=== PATIENT | male | born 1960 | race Caucasian/White ===

== ENCOUNTER 2022-03-11 18:46 | Emergency (ER) | payer OTHER ==
[~2022-03-11] VITALS: Ht 182.9 cm; Wt 102.3 kg
[2022-03-11 19:19] LABS: BASOPHILS % (AUTO) 0.3 % (0-1); EOSINOPHILS # (AUTO) 0.4 X10'3 (0-0.9); EOSINOPHILS % (AUTO) 3.1 % (0-6); HEMATOCRIT 41.1 % (42.0-52.0); HEMOGLOBIN 13.8 g/dl (14.0-17.9); LYMPHOCYTES # (AUTO) 2.1 X10'3 (1.1-4.8); LYMPHOCYTES % (AUTO) 17.2 % (21-51); MEAN CORPUSCULAR HEMOGLOBIN 28.8 PG (27.0-31.0); MEAN CORPUSCULAR HGB CONC 33.5 g/dL (33.0-36.5); MEAN CORPUSCULAR VOLUME 86.1 FL (78-98); MEAN PLATELET VOLUME 8.6 FL (7.4-10.4); MONOCYTES # (AUTO) 2.4 X10'3 (0-0.9); MONOCYTES % (AUTO) 19.8 % (2-12); NEUTROPHILS # (AUTO) 7.1 X10'3 (1.8-7.7); NEUTROPHILS % (AUTO) 59.6 % (42-75); PLATELET COUNT 287 X10'3 (140-440); RED BLOOD COUNT 4.77 X10'6 (4.70-6.10); RED CELL DISTRIBUTION WIDTH 15.7 % (11.5-14.5); WHITE BLOOD COUNT 11.9 X10'3 (4.5-11.0)
[2022-03-11] MEDS ORDERED: aspirin 325mg tablet PO ONE (20:50)
[2022-03-11] MEDS ORDERED: loperamide 2mg capsule PO ONE (20:50)
[2022-03-11] MEDS ORDERED: ondansetron 4mg rapidly disintigrating tab PO ONE (20:50)
[2022-03-11 21:18] LABS: ALANINE AMINOTRANSFERASE 117 U/L (12-78); ALBUMIN 3.8 G/DL (3.4-5.0); ALBUMIN/GLOBULIN RATIO 0.8 (1.1-1.5); ALKALINE PHOSPHATASE 142 IU/L (46-116); ANION GAP 9 (8-16); ASPARTATE AMINO TRANSFERASE 125 U/L (10-37); BILIRUBIN,TOTAL 1.4 MG/DL (0.1-1.0); BLOOD UREA NITROGEN 27 MG/DL (7-18); BUN/CREATININE RATIO 27.8 (5.4-32.0); CALCIUM 9.2 MG/DL (8.5-10.1); CHLORIDE 99 MMOL/L (99-107); CREATININE 0.97 MG/DL (0.60-1.10); GLUCOSE 132 MG/DL (70-104); POTASSIUM 3.6 MMOL/L (3.5-5.1); SODIUM 133 MMOL/L (135-145); TOTAL CARBON DIOXIDE 25.2 MMOL/L (24-32); TOTAL PROTEIN 8.6 G/DL (6.4-8.2); eGFR 78 ML/MIN
[2022-03-11 21:33] LABS: TOTAL CELLS COUNTED 100
[2022-03-11 21:34] LABS: PLATELET ESTIMATE NORMAL
[2022-03-11 22:15] VITALS: BP 165/104
== END 2022-03-11 22:16 | disposition home or self-care (01) ==
LOC: ER 18:46
DX: R07.89 Other chest pain (principal); R42 Dizziness and giddiness; R11.0 Nausea; I10 Essential (primary) hypertension; I25.2 Old myocardial infarction
CPT/HCPCS: 36415; 71045; 80053; 83880; 84484; 85007; 85025; 93005; 99285

== ENCOUNTER 2023-09-10 13:59 | Inpatient (IN) | payer OTHER, MEDICARE ==
[~2023-09-10] VITALS: Ht 188 cm; Wt 114.8 kg
[2023-09-10 15:44] LABS: BASOPHILS # (AUTO) 0.1 X10'3 (0-0.2); BASOPHILS % (AUTO) 0.5 % (0-1); EOSINOPHILS # (AUTO) 0.3 X10'3 (0-0.9); HEMATOCRIT 30.1 % (42.0-52.0); HEMOGLOBIN 9.4 g/dl (14.0-17.9); LYMPHOCYTES # (AUTO) 2.1 X10'3 (1.1-4.8); LYMPHOCYTES % (AUTO) 14.5 % (21-51); MEAN CORPUSCULAR HEMOGLOBIN 25.2 PG (27.0-31.0); MEAN CORPUSCULAR HGB CONC 31.3 g/dL (33.0-36.5); MEAN CORPUSCULAR VOLUME 80.4 FL (78-98); MEAN PLATELET VOLUME 8.6 FL (7.4-10.4); MONOCYTES # (AUTO) 2.1 X10'3 (0-0.9); MONOCYTES % (AUTO) 14.5 % (2-12); NEUTROPHILS # (AUTO) 9.8 X10'3 (1.8-7.7); NEUTROPHILS % (AUTO) 68.5 % (42-75); PLATELET COUNT 264 X10'3 (140-440); RED BLOOD COUNT 3.75 X10'6 (4.70-6.10); RED CELL DISTRIBUTION WIDTH 20.2 % (11.5-14.5); WHITE BLOOD COUNT 14.3 X10'3 (4.5-11.0)
[2023-09-10 15:58] LABS: ALANINE AMINOTRANSFERASE 78 U/L (12-78); ALBUMIN 2.9 G/DL (3.4-5.0); ALBUMIN/GLOBULIN RATIO 0.6 (1.1-1.5); ALKALINE PHOSPHATASE 150 IU/L (46-116); ANION GAP 7 (8-16); ASPARTATE AMINO TRANSFERASE 103 U/L (10-37); BILIRUBIN,TOTAL 0.9 MG/DL (0.1-1.0); BLOOD UREA NITROGEN 14 MG/DL (7-18); BUN/CREATININE RATIO 13.7 (10.0-20.0); CALCIUM 8.7 MG/DL (8.5-10.1); CHLORIDE 96 MMOL/L (99-107); CREATININE 1.02 MG/DL (0.60-1.10); GLUCOSE 120 MG/DL (70-104); SODIUM 133 MMOL/L (135-145); TOTAL CARBON DIOXIDE 29.9 MMOL/L (24-32); eCRCL 84 ML/MIN; eGFR 73 ML/MIN
[2023-09-10 16:02] LABS: ANISOCYTOSIS 3+; MICROCYTOSIS 1+; PLATELET ESTIMATE NORMAL; TOTAL CELLS COUNTED 100
[2023-09-10] MEDS ORDERED: thiamine 100mg tablet PO STA (16:43)
[2023-09-10] MEDS ORDERED: folic acid 1mg tablet PO STA (16:43)
[2023-09-10] MEDS ORDERED: phenobarbital sod 130mg/ml inj. IV ONE (16:45)
[2023-09-10] MEDS ORDERED: dextrose 50%-water 50ml dispensing syringe IV PRN ×2 (16:45→18:25)
[2023-09-10] MEDS ORDERED: magnesium Cl slow-release 64mg tablet PO PRN (17:50)
[2023-09-10] MEDS ORDERED: magnesium 2GM in 50ml NS 50 ML IV PRN (17:50)
[2023-09-10] MEDS ORDERED: magnesium hydroxide 30ml (MOM) UD suspension PO PRN (17:50)
[2023-09-10] MEDS ORDERED: potassium Cl 20 mEq SR tablet PO PRN ×2 (17:50)
[2023-09-10] MEDS ORDERED: magnesium 4gm in 100ml NS 100 ML IV PRN (17:50)
[2023-09-10] MEDS ORDERED: ondansetron/PF 4mg/2ml inj IV PRN (17:50)
[2023-09-10] MEDS: normal saline 1000ml 1,000 ML IV SCH (17:50)
[2023-09-10] MEDS ORDERED: HYDROmorphone inj. 0.5 MG/0.5 ML DISP.SYRIN IV PRN (17:50)
[2023-09-10] MEDS ORDERED: potassium Cl 40MEQ/1/2NS 520ml 520 ML IV PRN (17:50)
[2023-09-10] MEDS ORDERED: acetaminophen 325mg tablet PO PRN (17:50)
[2023-09-10 18:00] LABS: BILIRUBIN,URINE NEGATIVE (Neg); CLARITY,URINE CLEAR (Clear); COLOR,URINE YELLOW (Yellow); GLUCOSE, URINE NEGATIVE (Neg); KETONES,URINE NEGATIVE (Neg); LEUKOCYTE ESTERASE ,URINE NEGATIVE (Neg); NITRITES, URINE NEGATIVE (Neg); OCCULT BLOOD,URINE NEGATIVE (Neg); PH,URINE 6.5 (4.8-8.0); PROTEIN,URINE NEGATIVE (Neg)
[2023-09-10 18:01] LABS: UA COLLECTION TYPE CLN CATCH MIDSTREAM
[2023-09-10] MEDS: folic acid 1mg/0.2ml inj IV SCH (18:25)
[2023-09-10] MEDS ORDERED: haloperidol lactate 5mg/ml inj IM PRN (18:25)
[2023-09-10] MEDS ORDERED: haloperidol 5mg tablet PO PRN (18:25)
[2023-09-10] MEDS ORDERED: tetanus & diphtheria toxoid (Td) vaccine 0.5ml IMVAC ONE (18:30)
[2023-09-10] MEDS ORDERED: TETanus/Pertussis (Acell)/Diphther VAC/PF (Tdap-Adult) 0.5ml syringe IMVAC ONE (18:40)
--- NOTE | 2023-09-10 19:39 | NUR ---
OF PT, LUZ MARIA, OKAY TO UPDATE WITH ANY CHANGES; PH# [phone]
[2023-09-10] MEDS: K and/or MAG REPLACEMENT MC SCH (20:51)
[2023-09-10] MEDS: thiamine 100mg/ml 2ml inj. IV SCH (21:00)
[2023-09-10] MEDS ORDERED: thiamine 100mg/ml 2ml inj. IV SCH (21:00)
[2023-09-10] MEDS: docusate sod 100mg capsule PO SCH (21:12)
[2023-09-10] MEDS: heparin, porcine 5000 units/ml vial SQ SCH (21:13)
[2023-09-10] MEDS: VANCOmycin 1250MG/NS 250ml Bag 250 ML IV SCH (21:14)
[2023-09-10] MEDS: mag hydrox/Alum hydrox/simeth 30ml oral suspension PO PRN (21:14)
[2023-09-10] MEDS: LORazepam 2 mg/ml vial IV PRN (23:17)
[2023-09-10] MEDS: piperacillin/tazo 3.375gm/50ml 50 ML IV SCH (23:22)
[2023-09-11] MEDS: LORazepam 2 mg/ml vial IV PRN ×2 (02:26→08:42)
[2023-09-11 03:33] LABS: BASOPHILS # (AUTO) 0.1 X10'3 (0-0.2); BASOPHILS % (AUTO) 0.9 % (0-1); EOSINOPHILS # (AUTO) 0.3 X10'3 (0-0.9); EOSINOPHILS % (AUTO) 2.6 % (0-6); HEMATOCRIT 29.5 % (42.0-52.0); HEMOGLOBIN 9.2 g/dl (14.0-17.9); LYMPHOCYTES # (AUTO) 1.8 X10'3 (1.1-4.8); LYMPHOCYTES % (AUTO) 15.1 % (21-51); MEAN CORPUSCULAR HGB CONC 31.2 g/dL (33.0-36.5); MEAN PLATELET VOLUME 8.8 FL (7.4-10.4); MONOCYTES # (AUTO) 1.7 X10'3 (0-0.9); MONOCYTES % (AUTO) 14.8 % (2-12); NEUTROPHILS # (AUTO) 7.8 X10'3 (1.8-7.7); NEUTROPHILS % (AUTO) 66.6 % (42-75); PLATELET COUNT 250 X10'3 (140-440); RED BLOOD COUNT 3.69 X10'6 (4.70-6.10); RED CELL DISTRIBUTION WIDTH 19.9 % (11.5-14.5); WHITE BLOOD COUNT 11.7 X10'3 (4.5-11.0)
[2023-09-11 03:35] LABS: ALANINE AMINOTRANSFERASE 72 U/L (12-78); ALBUMIN 2.7 G/DL (3.4-5.0); ALBUMIN/GLOBULIN RATIO 0.6 (1.1-1.5); ALKALINE PHOSPHATASE 168 IU/L (46-116); ANION GAP 8 (8-16); ASPARTATE AMINO TRANSFERASE 86 U/L (10-37); BILIRUBIN,TOTAL 0.9 MG/DL (0.1-1.0); BLOOD UREA NITROGEN 12 MG/DL (7-18); BUN/CREATININE RATIO 14.3 (10.0-20.0); CALCIUM 8.3 MG/DL (8.5-10.1); CHLORIDE 100 MMOL/L (99-107); CREATININE 0.84 MG/DL (0.60-1.10); GLUCOSE 117 MG/DL (70-104); POTASSIUM 3.6 MMOL/L (3.5-5.1); SODIUM 135 MMOL/L (135-145); TOTAL PROTEIN 7.6 G/DL (6.4-8.2); eCRCL 102 ML/MIN; eGFR > 90 ML/MIN
[2023-09-11] MEDS: normal saline 1000ml 1,000 ML IV SCH ×3 (03:50→19:31)
[2023-09-11] MEDS: thiamine 100mg/ml 2ml inj. IV SCH ×3 (06:50→21:54)
[2023-09-11] MEDS: piperacillin/tazo 3.375gm/50ml 50 ML IV SCH (06:52)
[2023-09-11] MEDS: docusate sod 100mg capsule PO SCH ×2 (06:52→19:29)
[2023-09-11] MEDS: K and/or MAG REPLACEMENT MC SCH ×2 (06:53→19:29)
[2023-09-11] MEDS: gabapentin 400mg capsule PO SCH ×2 (07:01)
[2023-09-11] MEDS: heparin, porcine 5000 units/ml vial SQ SCH ×2 (07:03→19:30)
[2023-09-11] MEDS: folic acid 1mg/0.2ml inj IV SCH (07:07)
--- NOTE | 2023-09-11 07:33 | NUR ---
REPORT CALLED UP TO REJI GRIJALVA ON ORTHO. PATIENT TRANSFERRED UPSTAIRS VIA GURNEY.
--- NOTE | 2023-09-11 07:33 | NUR ---
RECEIVED REPORT FROM ED RN
[2023-09-11] MEDS ORDERED: folic acid 1mg/0.2ml inj IV SCH (08:00)
[2023-09-11] MEDS: VANCOmycin 1250MG/NS 250ml Bag 250 ML IV SCH ×2 (08:04→19:28)
[2023-09-11 08:09] VITALS: BP 167/80; PULSE 99; RESP 14; TEMP 98.6; O2SAT 94
[2023-09-11] MEDS: HYDROcodone/acetaminophen 5mg/325mg tablet PO PRN ×2 (08:42→14:14)
[2023-09-11 10:00] VITALS: BP 153/88; PULSE 93; RESP 18; TEMP 99.1; O2SAT 92
[2023-09-11] MEDS ORDERED: AMLO-140 PO (13:15)
[2023-09-11] MEDS ORDERED: DICL100G59 TOP (13:15)
[2023-09-11] MEDS ORDERED: CAPS60CR6 TOP (13:15)
[2023-09-11] MEDS ORDERED: LIDO5CRE18 TOP (13:15)
[2023-09-11] MEDS ORDERED: THI100I (13:15)
[2023-09-11] MEDS ORDERED: GABA600T13 PO (13:15)
[2023-09-11] MEDS ORDERED: TIZA4CAP PO (13:15)
[2023-09-11] MEDS ORDERED: CYAN500T71 PO (13:15)
[2023-09-11] MEDS ORDERED: TRAM50TA2 PO (13:15)
[2023-09-11] MEDS ORDERED: FURO-150 PO (13:15)
[2023-09-11] MEDS ORDERED: MULT-1085 PO (13:15)
[2023-09-11] MEDS ORDERED: FOLI0.4T6 PO (13:15)
[2023-09-11] MEDS ORDERED: HYDR-3927 PO (13:15)
[2023-09-11] MEDS ORDERED: MECL-231 PO (13:15)
[2023-09-11] MEDS ORDERED: SPIR25TA5 PO (13:15)
[2023-09-11] MEDS ORDERED: spironolactone 25 MG tablet PO PRN (14:35)
[2023-09-11] MEDS ORDERED: non-formulary drug (Amlodipine Besylate/Benazepril 5/40 MG* (Amlodipine-Benazepril 5/40 MG PO PRN (14:35)
[2023-09-11] MEDS ORDERED: meclizine 12.5mg tablet PO PRN (16:00)
[2023-09-11] MEDS: tizanidine 4mg tablet PO SCH (16:18)
[2023-09-11] MEDS: gabapentin 300mg capsule PO SCH (16:18)
[2023-09-11 18:00] VITALS: BP 132/74; PULSE 87; RESP 18; TEMP 98; O2SAT 95
--- NOTE | 2023-09-11 18:28 | NUR ---
gave report raffaele hutchins
[2023-09-11] MEDS: DICLOFENAC SODIUM 1% gel 1 APPLIC APPLIC TP SCH (19:28)
[2023-09-11] MEDS: LIDOCAINE 5% OINTMENT 35GM TP SCH (19:30)
[2023-09-11] MEDS: capsaicin 0.025% 60gm cream TP SCH (19:30)
[2023-09-11] MEDS: hydrOXYzine 25 MG tablet PO SCH (21:55)
[2023-09-11 22:00] VITALS: BP 144/88; PULSE 82; RESP 20; TEMP 98.8; O2SAT 97
[2023-09-12] MEDS: gabapentin 300mg capsule PO SCH ×3 (00:20→15:37)
[2023-09-12] MEDS: tizanidine 4mg tablet PO SCH ×3 (00:20→15:37)
[2023-09-12] MEDS: DICLOFENAC SODIUM 1% gel 1 APPLIC APPLIC TP SCH ×4 (00:21→20:00)
[2023-09-12 06:00] VITALS: BP 153/88; PULSE 74; RESP 19; TEMP 98.8; O2SAT 96
[2023-09-12] MEDS ORDERED: VANCOMYCIN LEVEL IV ONE (06:30)
--- NOTE | 2023-09-12 06:42 | NUR ---
Problems reprioritized. Patient report given, questions answered & plan of care reviewed with REJI SILVA.
[2023-09-12 07:11] LABS: ALANINE AMINOTRANSFERASE 48 U/L (12-78); ALBUMIN 2.2 G/DL (3.4-5.0); ALBUMIN/GLOBULIN RATIO 0.5 (1.1-1.5); ALKALINE PHOSPHATASE 114 IU/L (46-116); ANION GAP 5 (8-16); ASPARTATE AMINO TRANSFERASE 56 U/L (10-37); BILIRUBIN,TOTAL 0.7 MG/DL (0.1-1.0); BLOOD UREA NITROGEN 14 MG/DL (7-18); BUN/CREATININE RATIO 17.1 (10.0-20.0); CALCIUM 7.9 MG/DL (8.5-10.1); CHLORIDE 104 MMOL/L (99-107); CREATININE 0.82 MG/DL (0.60-1.10); GLUCOSE 114 MG/DL (70-104); POTASSIUM 4.1 MMOL/L (3.5-5.1); SODIUM 135 MMOL/L (135-145); TOTAL PROTEIN 6.6 G/DL (6.4-8.2); VANCOMYCIN,TROUGH 11.9 ug/mL (10.0-20.0); eCRCL 104 ML/MIN; eGFR > 90 ML/MIN
[2023-09-12 07:13] LABS: BASOPHILS # (AUTO) 0.1 X10'3 (0-0.2); BASOPHILS % (AUTO) 0.9 % (0-1); EOSINOPHILS # (AUTO) 0.3 X10'3 (0-0.9); EOSINOPHILS % (AUTO) 3.6 % (0-6); HEMATOCRIT 29.3 % (42.0-52.0); HEMOGLOBIN 9.3 g/dl (14.0-17.9); LYMPHOCYTES # (AUTO) 1.8 X10'3 (1.1-4.8); LYMPHOCYTES % (AUTO) 21.7 % (21-51); MEAN CORPUSCULAR HEMOGLOBIN 25.5 PG (27.0-31.0); MEAN CORPUSCULAR HGB CONC 31.6 g/dL (33.0-36.5); MEAN CORPUSCULAR VOLUME 80.6 FL (78-98); MEAN PLATELET VOLUME 8.7 FL (7.4-10.4); MONOCYTES # (AUTO) 1.4 X10'3 (0-0.9); MONOCYTES % (AUTO) 16.1 % (2-12); NEUTROPHILS # (AUTO) 4.9 X10'3 (1.8-7.7); NEUTROPHILS % (AUTO) 57.7 % (42-75); PLATELET COUNT 218 X10'3 (140-440); RED BLOOD COUNT 3.64 X10'6 (4.70-6.10); WHITE BLOOD COUNT 8.5 X10'3 (4.5-11.0)
[2023-09-12] MEDS: capsaicin 0.025% 60gm cream TP SCH ×2 (08:00→20:00)
[2023-09-12] MEDS: LIDOCAINE 5% OINTMENT 35GM TP SCH ×2 (08:00→20:00)
[2023-09-12] MEDS: K and/or MAG REPLACEMENT MC SCH ×2 (08:00→20:00)
[2023-09-12] MEDS: lisinopril 20mg tablet PO SCH (08:00)
[2023-09-12] MEDS: VANCOmycin 1250MG/NS 250ml Bag 250 ML IV SCH (08:19)
[2023-09-12 08:20] LABS: ANISOCYTOSIS 2+; PLATELET ESTIMATE NORMAL; TOTAL CELLS COUNTED 100
[2023-09-12 08:21] LABS: POIKILOCYTOSIS FEW; POLYCHROMASIA FEW; STOMATOCYTES FEW
[2023-09-12] MEDS: thiamine 100mg/ml 2ml inj. IV SCH ×3 (08:21→22:15)
[2023-09-12] MEDS: docusate sod 100mg capsule PO SCH ×2 (08:21→20:00)
[2023-09-12] MEDS: multivitamins, therapeutics tablet PO SCH (08:22)
[2023-09-12] MEDS: amLODIPine 5mg tablet PO SCH (08:22)
[2023-09-12] MEDS: cyanocobalamin 500mcg tablet PO SCH (08:22)
[2023-09-12] MEDS: furosemide 20MG tablet PO PRN (08:23)
[2023-09-12] MEDS: HYDROcodone/acetaminophen 5mg/325mg tablet PO PRN ×3 (08:23→19:35)
[2023-09-12] MEDS: heparin, porcine 5000 units/ml vial SQ SCH ×2 (08:24→19:33)
[2023-09-12 10:00] VITALS: BP 145/80; PULSE 94; RESP 18; TEMP 98.3; O2SAT 96
[2023-09-12] MEDS: folic acid 1mg/0.2ml inj IV SCH (10:23)
[2023-09-12] MEDS: mag hydrox/Alum hydrox/simeth 30ml oral suspension PO PRN ×2 (15:42→19:44)
[2023-09-12] MEDS: normal saline 1000ml 1,000 ML IV SCH (15:51)
--- NOTE | 2023-09-12 18:11 | NUR ---
Gave report to January
[2023-09-12] MEDS ORDERED: LORazepam 1 MG tablet PO PRN (18:25)
[2023-09-12] MEDS ORDERED: LORazepam 2 mg/ml vial IV PRN (18:25)
[2023-09-12 18:30] VITALS: BP 129/78; PULSE 79; RESP 16; TEMP 97.9; O2SAT 95
[2023-09-12] MEDS: VANCOMYCIN 1,500MG in NS 300ml IVPB IV SCH (19:34)
[2023-09-12 22:00] VITALS: BP 163/105; PULSE 84; RESP 18; TEMP 97.6; O2SAT 94
[2023-09-12] MEDS: hydrOXYzine 25 MG tablet PO SCH (22:14)
[2023-09-13] MEDS: DICLOFENAC SODIUM 1% gel 1 APPLIC APPLIC TP SCH ×4 (02:00→20:00)
[2023-09-13] MEDS: gabapentin 300mg capsule PO SCH ×4 (02:08→23:24)
[2023-09-13] MEDS: tizanidine 4mg tablet PO SCH ×4 (02:08→23:24)
[2023-09-13] MEDS: mag hydrox/Alum hydrox/simeth 30ml oral suspension PO PRN ×2 (02:08→20:22)
[2023-09-13] MEDS: normal saline 1000ml 1,000 ML IV SCH (02:12)
[2023-09-13 06:00] VITALS: BP 126/68; PULSE 70; RESP 16; TEMP 98.2; O2SAT 97
[2023-09-13 07:23] LABS: BASOPHILS # (AUTO) 0.1 X10'3 (0-0.2); EOSINOPHILS # (AUTO) 0.4 X10'3 (0-0.9); HEMATOCRIT 29.3 % (42.0-52.0); HEMOGLOBIN 9.2 g/dl (14.0-17.9); LYMPHOCYTES % (AUTO) 22.5 % (21-51); MEAN CORPUSCULAR HEMOGLOBIN 25.3 PG (27.0-31.0); MEAN CORPUSCULAR HGB CONC 31.4 g/dL (33.0-36.5); MEAN CORPUSCULAR VOLUME 80.5 FL (78-98); MEAN PLATELET VOLUME 8.5 FL (7.4-10.4); MONOCYTES # (AUTO) 1.3 X10'3 (0-0.9); NEUTROPHILS # (AUTO) 5.3 X10'3 (1.8-7.7); NEUTROPHILS % (AUTO) 58.5 % (42-75); PLATELET COUNT 248 X10'3 (140-440); RED BLOOD COUNT 3.63 X10'6 (4.70-6.10); RED CELL DISTRIBUTION WIDTH 19.8 % (11.5-14.5); WHITE BLOOD COUNT 9.1 X10'3 (4.5-11.0)
[2023-09-13] MEDS: lisinopril 20mg tablet PO SCH (07:35)
[2023-09-13] MEDS: multivitamins, therapeutics tablet PO SCH (07:36)
[2023-09-13] MEDS: cyanocobalamin 500mcg tablet PO SCH (07:36)
[2023-09-13] MEDS: amLODIPine 5mg tablet PO SCH (07:38)
[2023-09-13] MEDS: docusate sod 100mg capsule PO SCH ×2 (07:41→20:23)
[2023-09-13] MEDS: heparin, porcine 5000 units/ml vial SQ SCH ×2 (07:41→20:22)
[2023-09-13] MEDS: capsaicin 0.025% 60gm cream TP SCH ×2 (07:42→20:00)
[2023-09-13] MEDS: LIDOCAINE 5% OINTMENT 35GM TP SCH ×2 (07:42→20:00)
[2023-09-13 07:47] LABS: ALANINE AMINOTRANSFERASE 42 U/L (12-78); ALBUMIN 2.4 G/DL (3.4-5.0); ALBUMIN/GLOBULIN RATIO 0.5 (1.1-1.5); ALKALINE PHOSPHATASE 127 IU/L (46-116); ANION GAP 5 (8-16); ASPARTATE AMINO TRANSFERASE 46 U/L (10-37); BILIRUBIN,TOTAL 0.5 MG/DL (0.1-1.0); BLOOD UREA NITROGEN 12 MG/DL (7-18); CALCIUM 8.2 MG/DL (8.5-10.1); CHLORIDE 103 MMOL/L (99-107); GLUCOSE 141 MG/DL (70-104); SODIUM 134 MMOL/L (135-145); TOTAL CARBON DIOXIDE 26.5 MMOL/L (24-32); TOTAL PROTEIN 6.8 G/DL (6.4-8.2); eCRCL 107 ML/MIN; eGFR > 90 ML/MIN
[2023-09-13 08:00] VITALS: RESP 18; O2SAT 97
[2023-09-13] MEDS: K and/or MAG REPLACEMENT MC SCH ×2 (08:00→20:00)
[2023-09-13] MEDS: thiamine 100mg/ml 2ml inj. IV SCH (08:18)
[2023-09-13] MEDS: VANCOMYCIN 1,500MG in NS 300ml IVPB IV SCH ×2 (08:18→19:47)
[2023-09-13] MEDS: folic acid 1mg/0.2ml inj IV SCH (08:19)
[2023-09-13 10:00] VITALS: BP 125/68; PULSE 64; RESP 18; TEMP 97.7; O2SAT 97
--- NOTE | 2023-09-13 11:49 | NUR ---
Positive blood culture for MRSA- Needs ISO per .
--- NOTE | 2023-09-13 17:44 | NUR ---
AGREE WITH SAND MIXER MACHINE ASSESSMENT
--- NOTE | 2023-09-13 18:30 | NUR ---
Patient in room ORTHO 4016. I have received report from CLINT Arredondo and had the opportunity to ask questions and assume patient care.
[2023-09-13 20:00] VITALS: RESP 18; O2SAT 95
[2023-09-13] MEDS: thiamine 100mg tablet PO SCH (20:22)
[2023-09-13] MEDS: hydrOXYzine 25 MG tablet PO SCH (20:22)
[2023-09-13 22:00] VITALS: BP 150/67; PULSE 75; RESP 18; TEMP 99.1; O2SAT 96
[2023-09-14] MEDS: DICLOFENAC SODIUM 1% gel 1 APPLIC APPLIC TP SCH ×4 (02:00→19:32)
--- NOTE | 2023-09-14 05:29 | NUR ---
assessment performed by myself and PAVER LAYER. reviewed PAVER LAYER assessment.
[2023-09-14 06:00] VITALS: BP 136/78; PULSE 73; RESP 18; TEMP 98.7; O2SAT 93
--- NOTE | 2023-09-14 06:16 | NUR ---
Patient in room ORTHO 4016. I have received report from German JARAMILLO and had the opportunity to ask questions and assume patient care.
[2023-09-14] MEDS ORDERED: VANCOMYCIN LEVEL IV ONE (06:30)
[2023-09-14 07:20] LABS: BASOPHILS # (AUTO) 0.1 X10'3 (0-0.2); BASOPHILS % (AUTO) 0.9 % (0-1); EOSINOPHILS # (AUTO) 0.4 X10'3 (0-0.9); EOSINOPHILS % (AUTO) 4.2 % (0-6); HEMOGLOBIN 9.3 g/dl (14.0-17.9); LYMPHOCYTES # (AUTO) 1.9 X10'3 (1.1-4.8); LYMPHOCYTES % (AUTO) 20.4 % (21-51); MEAN CORPUSCULAR HGB CONC 31.1 g/dL (33.0-36.5); MEAN CORPUSCULAR VOLUME 80.5 FL (78-98); MEAN PLATELET VOLUME 8.4 FL (7.4-10.4); MONOCYTES # (AUTO) 1.3 X10'3 (0-0.9); MONOCYTES % (AUTO) 13.8 % (2-12); NEUTROPHILS # (AUTO) 5.7 X10'3 (1.8-7.7); NEUTROPHILS % (AUTO) 60.7 % (42-75); PLATELET COUNT 264 X10'3 (140-440); RED BLOOD COUNT 3.72 X10'6 (4.70-6.10); RED CELL DISTRIBUTION WIDTH 20.1 % (11.5-14.5); WHITE BLOOD COUNT 9.4 X10'3 (4.5-11.0)
[2023-09-14 07:31] LABS: ALANINE AMINOTRANSFERASE 37 U/L (12-78); ALBUMIN 2.4 G/DL (3.4-5.0); ALBUMIN/GLOBULIN RATIO 0.5 (1.1-1.5); ALKALINE PHOSPHATASE 116 IU/L (46-116); ANION GAP 6 (8-16); ASPARTATE AMINO TRANSFERASE 38 U/L (10-37); BILIRUBIN,TOTAL 0.7 MG/DL (0.1-1.0); BLOOD UREA NITROGEN 12 MG/DL (7-18); CALCIUM 8.7 MG/DL (8.5-10.1); CHLORIDE 104 MMOL/L (99-107); GLUCOSE 109 MG/DL (70-104); POTASSIUM 4.1 MMOL/L (3.5-5.1); SODIUM 135 MMOL/L (135-145); TOTAL CARBON DIOXIDE 25.5 MMOL/L (24-32); VANCOMYCIN,TROUGH 18.9 ug/mL (10.0-20.0); eCRCL 107 ML/MIN; eGFR > 90 ML/MIN
[2023-09-14] MEDS: VANCOMYCIN 1,500MG in NS 300ml IVPB IV SCH ×2 (07:47→19:31)
[2023-09-14] MEDS: docusate sod 100mg capsule PO SCH ×2 (07:48→19:32)
[2023-09-14] MEDS: gabapentin 300mg capsule PO SCH ×2 (07:48→16:15)
[2023-09-14] MEDS: amLODIPine 5mg tablet PO SCH (07:49)
[2023-09-14] MEDS: tizanidine 4mg tablet PO SCH ×2 (07:50→16:15)
[2023-09-14] MEDS: thiamine 100mg tablet PO SCH ×2 (07:50→19:32)
[2023-09-14] MEDS: cyanocobalamin 500mcg tablet PO SCH (07:50)
[2023-09-14] MEDS: lisinopril 20mg tablet PO SCH (07:50)
[2023-09-14] MEDS: multivitamins, therapeutics tablet PO SCH (07:50)
[2023-09-14] MEDS: heparin, porcine 5000 units/ml vial SQ SCH ×2 (07:52→19:32)
[2023-09-14] MEDS: LIDOCAINE 5% OINTMENT 35GM TP SCH ×2 (08:00→19:42)
[2023-09-14] MEDS: K and/or MAG REPLACEMENT MC SCH ×2 (08:00→19:33)
[2023-09-14] MEDS: capsaicin 0.025% 60gm cream TP SCH ×2 (08:00→19:42)
[2023-09-14] MEDS: HYDROcodone/acetaminophen 5mg/325mg tablet PO PRN ×3 (08:03→19:49)
[2023-09-14 08:06] VITALS: RESP 20
--- NOTE | 2023-09-14 09:31 | NUR ---
Initial: Pt admit for RUE cellulitis with hypokalemia and hyponatremia. Currently receiving routine Thiamine and MVI for EtOH with Folic acid just discontinued 09/13 per EMR. Pt on a regular diet and eating well, documented with average 83% PO intake since admit meeting 96% estimated energy needs and 100% estimated protein needs. LBM 09/13 per EMR. No nutrition intervention implemented at this time. Will continue to follow and make recommendations as appropriate. Recommendations: 1) Continue regular diet 2) Monitor need for additional food for satiety 3) Continue routine Thiamine, MVI, and Vitamin B12 for EtOH hx 4) Routine bowel care 5) Scaled weight this admit; subsequent weekly scaled weights Addendum: 09/14/23 at [address] Amended: Links added.
[2023-09-14 10:00] VITALS: BP 105/51; PULSE 61; RESP 16; TEMP 97.9; O2SAT 96
[2023-09-14] MEDS: mag hydrox/Alum hydrox/simeth 30ml oral suspension PO PRN (14:48)
[2023-09-14 18:00] VITALS: BP 133/78; PULSE 72; RESP 17; TEMP 98.8; O2SAT 97
[2023-09-14] MEDS ORDERED: LORazepam 2 mg/ml vial IV PRN (18:25)
[2023-09-14] MEDS ORDERED: LORazepam 1 MG tablet PO PRN (18:25)
--- NOTE | 2023-09-14 18:30 | NUR ---
Patient in room ORTHO 4016. I have received report from REJI Cooley and had the opportunity to ask questions and assume patient care.
[2023-09-14 20:00] VITALS: RESP 18; O2SAT 98
[2023-09-14] MEDS: hydrOXYzine 25 MG tablet PO SCH (21:17)
[2023-09-14 22:00] VITALS: BP 121/55; PULSE 69; RESP 18; TEMP 97.9; O2SAT 98
[2023-09-15] MEDS: tizanidine 4mg tablet PO SCH ×5 (00:42→23:34)
[2023-09-15] MEDS: gabapentin 300mg capsule PO SCH ×4 (00:42→23:34)
[2023-09-15] MEDS: DICLOFENAC SODIUM 1% gel 1 APPLIC APPLIC TP SCH ×4 (01:16→20:46)
[2023-09-15 06:00] VITALS: BP 141/83; PULSE 77; RESP 19; TEMP 98.1; O2SAT 98
[2023-09-15 06:20] LABS: BASOPHILS # (AUTO) 0.1 X10'3 (0-0.2); BASOPHILS % (AUTO) 1.2 % (0-1); EOSINOPHILS # (AUTO) 0.5 X10'3 (0-0.9); EOSINOPHILS % (AUTO) 4.5 % (0-6); HEMATOCRIT 31.2 % (42.0-52.0); HEMOGLOBIN 9.7 g/dl (14.0-17.9); LYMPHOCYTES # (AUTO) 2.2 X10'3 (1.1-4.8); LYMPHOCYTES % (AUTO) 21.4 % (21-51); MEAN CORPUSCULAR HEMOGLOBIN 24.8 PG (27.0-31.0); MEAN CORPUSCULAR VOLUME 79.8 FL (78-98); MEAN PLATELET VOLUME 8.5 FL (7.4-10.4); MONOCYTES # (AUTO) 1.3 X10'3 (0-0.9); MONOCYTES % (AUTO) 12.6 % (2-12); NEUTROPHILS # (AUTO) 6.1 X10'3 (1.8-7.7); NEUTROPHILS % (AUTO) 60.3 % (42-75); PLATELET COUNT 321 X10'3 (140-440); RED BLOOD COUNT 3.91 X10'6 (4.70-6.10); RED CELL DISTRIBUTION WIDTH 20.1 % (11.5-14.5); WHITE BLOOD COUNT 10.1 X10'3 (4.5-11.0)
[2023-09-15 06:45] LABS: ALANINE AMINOTRANSFERASE 38 U/L (12-78); ALBUMIN 2.7 G/DL (3.4-5.0); ALBUMIN/GLOBULIN RATIO 0.6 (1.1-1.5); ALKALINE PHOSPHATASE 114 IU/L (46-116); ANION GAP 8 (8-16); ASPARTATE AMINO TRANSFERASE 47 U/L (10-37); BILIRUBIN,TOTAL 0.6 MG/DL (0.1-1.0); BLOOD UREA NITROGEN 15 MG/DL (7-18); BUN/CREATININE RATIO 16.9 (10.0-20.0); CALCIUM 8.8 MG/DL (8.5-10.1); CHLORIDE 102 MMOL/L (99-107); CREATININE 0.89 MG/DL (0.60-1.10); GLUCOSE 110 MG/DL (70-104); POTASSIUM 4.4 MMOL/L (3.5-5.1); SODIUM 135 MMOL/L (135-145); TOTAL CARBON DIOXIDE 24.9 MMOL/L (24-32); TOTAL PROTEIN 7.6 G/DL (6.4-8.2); eCRCL 96 ML/MIN; eGFR 86 ML/MIN
--- NOTE | 2023-09-15 06:54 | NUR ---
Problems reprioritized. Patient report given, questions answered & plan of care reviewed with REJI Cooley.
[2023-09-15] MEDS: VANCOMYCIN 1,500MG in NS 300ml IVPB IV SCH ×2 (07:33→19:13)
[2023-09-15] MEDS: thiamine 100mg tablet PO SCH ×2 (07:34→20:45)
[2023-09-15] MEDS: cyanocobalamin 500mcg tablet PO SCH (07:35)
[2023-09-15] MEDS: docusate sod 100mg capsule PO SCH ×2 (07:36→20:00)
[2023-09-15] MEDS: lisinopril 20mg tablet PO SCH (07:36)
[2023-09-15] MEDS: multivitamins, therapeutics tablet PO SCH (07:36)
[2023-09-15] MEDS: capsaicin 0.025% 60gm cream TP SCH ×2 (07:37→20:00)
[2023-09-15] MEDS: LIDOCAINE 5% OINTMENT 35GM TP SCH ×2 (07:37→20:00)
[2023-09-15] MEDS: heparin, porcine 5000 units/ml vial SQ SCH ×2 (07:39→20:45)
[2023-09-15] MEDS: amLODIPine 5mg tablet PO SCH (07:39)
[2023-09-15 07:54] VITALS: RESP 18
[2023-09-15] MEDS: K and/or MAG REPLACEMENT MC SCH ×2 (08:00→20:00)
[2023-09-15] MEDS: HYDROcodone/acetaminophen 5mg/325mg tablet PO PRN ×3 (09:51→20:45)
[2023-09-15] MEDS: normal saline 1000ml 1,000 ML IV SCH (11:46)
--- NOTE | 2023-09-15 18:32 | NUR ---
Patient in room ORTHO 4016. I have received report from REJI Cooley and had the opportunity to ask questions and assume patient care.
--- NOTE | 2023-09-15 18:36 | NUR ---
Problems reprioritized. Patient report given, questions answered & plan of care reviewed with Preeti MENDOZA.
[2023-09-15 18:52] VITALS: BP 149/82; PULSE 90; RESP 16; TEMP 97; O2SAT 97
[2023-09-15 20:00] VITALS: RESP 16; O2SAT 97
[2023-09-15] MEDS: hydrOXYzine 25 MG tablet PO SCH (20:44)
[2023-09-15] MEDS: mag hydrox/Alum hydrox/simeth 30ml oral suspension PO PRN (21:34)
[2023-09-15 22:00] VITALS: BP 183/86; PULSE 88; RESP 19; TEMP 97.8; O2SAT 94
[2023-09-15 23:00] VITALS: BP 142/77; PULSE 110
[2023-09-16] VITALS (7 sets, daily range): BP systolic 107–165; BP diastolic 68–97; PULSE 82–88; RESP 13–19; TEMP 97.6–98.1; O2SAT 94–98
[2023-09-16] MEDS: DICLOFENAC SODIUM 1% gel 1 APPLIC APPLIC TP SCH ×4 (02:00→19:12)
--- NOTE | 2023-09-16 06:10 | NUR ---
Patient in room ORTHO 4016. I have received report from Preeti MENDOZA and had the opportunity to ask questions and assume patient care.
--- NOTE | 2023-09-16 06:14 | NUR ---
Problems reprioritized. Patient report given, questions answered & plan of care reviewed with CLINT Cohen.
[2023-09-16] MEDS: K and/or MAG REPLACEMENT MC SCH ×2 (08:00→19:00)
[2023-09-16] MEDS: LIDOCAINE 5% OINTMENT 35GM TP SCH ×2 (08:00→19:01)
[2023-09-16] MEDS: capsaicin 0.025% 60gm cream TP SCH ×2 (08:00→19:01)
[2023-09-16] MEDS: multivitamins, therapeutics tablet PO SCH (08:33)
[2023-09-16] MEDS: tizanidine 4mg tablet PO SCH ×2 (08:34→16:00)
[2023-09-16] MEDS: docusate sod 100mg capsule PO SCH ×2 (08:34→19:12)
[2023-09-16] MEDS: lisinopril 20mg tablet PO SCH (08:34)
[2023-09-16] MEDS: cyanocobalamin 500mcg tablet PO SCH (08:34)
[2023-09-16] MEDS: thiamine 100mg tablet PO SCH ×2 (08:35→19:12)
[2023-09-16] MEDS: amLODIPine 5mg tablet PO SCH (08:35)
[2023-09-16] MEDS: heparin, porcine 5000 units/ml vial SQ SCH ×2 (08:35→19:13)
[2023-09-16] MEDS: gabapentin 300mg capsule PO SCH ×2 (08:45→16:48)
[2023-09-16] MEDS: HYDROcodone/acetaminophen 5mg/325mg tablet PO PRN ×2 (08:46→16:47)
[2023-09-16] MEDS: normal saline 1000ml 1,000 ML IV SCH (09:18)
[2023-09-16] MEDS: VANCOMYCIN 1,500MG in NS 300ml IVPB IV SCH ×2 (09:18→19:33)
--- NOTE | 2023-09-16 15:19 | NUR ---
All patient care provided by CLINT Cohen. I am available for IV medications
[2023-09-16] MEDS: hydrOXYzine 25 MG tablet PO SCH (21:10)
--- NOTE | 2023-09-16 23:44 | NUR ---
Problems reprioritized. Patient report given, questions answered & plan of care reviewed with renea MENDOZA.
--- NOTE | 2023-09-16 23:46 | NUR ---
Patient in room ORTHO 4016. I have received report from DANTE JARAMILLO and had the opportunity to ask questions and assume patient care.
--- NOTE | 2023-09-16 23:52 | NUR ---
PHOTOGRAPHIC SUPERVISOR HERE AND PLACED A POWERGLIDE MIDLINE IN [place] AFTER PIV INFILTRATED AT END OF VANCO WITH APPROX. 100ML REMAINING. CALLED PHARMACY AND INQUIRED ABOUT FINISHING THE VANCO. WILL CONTINUE AND COMPLETE INFUSING PER PHARMACIST INSTRUCTION.
[2023-09-17] MEDS: gabapentin 300mg capsule PO SCH ×3 (00:09→15:53)
[2023-09-17] MEDS: tizanidine 4mg tablet PO SCH ×3 (00:09→21:29)
[2023-09-17] MEDS: HYDROcodone/acetaminophen 5mg/325mg tablet PO PRN ×3 (00:11→21:30)
[2023-09-17] MEDS: DICLOFENAC SODIUM 1% gel 1 APPLIC APPLIC TP SCH ×4 (02:00→21:24)
--- NOTE | 2023-09-17 05:56 | NUR ---
-0000 AGREE WITH OFFICE MACHINE SERVICE SUPERVISOR [facility] WHEN I ASSUMED CARE AT 2400
[2023-09-17 06:00] VITALS: BP 143/88; PULSE 88; RESP 14; TEMP 98.4; O2SAT 95
--- NOTE | 2023-09-17 06:33 | NUR ---
Problems reprioritized. Patient report given, questions answered & plan of care reviewed with ISABEL AND TIERRA RN'S.
[2023-09-17] MEDS: VANCOMYCIN 1,500MG in NS 300ml IVPB IV SCH ×2 (06:45→19:38)
[2023-09-17] MEDS: furosemide 20MG tablet PO PRN (06:50)
[2023-09-17] MEDS: cyanocobalamin 500mcg tablet PO SCH (06:50)
[2023-09-17] MEDS: amLODIPine 5mg tablet PO SCH (06:51)
[2023-09-17] MEDS: docusate sod 100mg capsule PO SCH ×2 (06:51→19:37)
[2023-09-17] MEDS: multivitamins, therapeutics tablet PO SCH (07:00)
[2023-09-17] MEDS: lisinopril 20mg tablet PO SCH (07:00)
[2023-09-17] MEDS: thiamine 100mg tablet PO SCH ×2 (07:02→19:37)
[2023-09-17 08:08] VITALS: RESP 16; O2SAT 95
[2023-09-17 08:44] LABS: ALANINE AMINOTRANSFERASE 32 U/L (12-78); ALBUMIN 2.8 G/DL (3.4-5.0); ALBUMIN/GLOBULIN RATIO 0.6 (1.1-1.5); ALKALINE PHOSPHATASE 111 IU/L (46-116); ANION GAP 5 (8-16); ASPARTATE AMINO TRANSFERASE 43 U/L (10-37); BILIRUBIN,TOTAL 0.7 MG/DL (0.1-1.0); BLOOD UREA NITROGEN 11 MG/DL (7-18); BUN/CREATININE RATIO 11.3 (10.0-20.0); CALCIUM 8.9 MG/DL (8.5-10.1); CHLORIDE 102 MMOL/L (99-107); CREATININE 0.97 MG/DL (0.60-1.10); GLUCOSE 173 MG/DL (70-104); POTASSIUM 4.4 MMOL/L (3.5-5.1); SODIUM 133 MMOL/L (135-145); TOTAL CARBON DIOXIDE 25.9 MMOL/L (24-32); TOTAL PROTEIN 7.7 G/DL (6.4-8.2); eCRCL 88 ML/MIN; eGFR 78 ML/MIN
[2023-09-17] MEDS: K and/or MAG REPLACEMENT MC SCH ×2 (08:54→20:00)
[2023-09-17] MEDS: heparin, porcine 5000 units/ml vial SQ SCH ×2 (08:56→19:38)
[2023-09-17 10:00] VITALS: BP 106/59; PULSE 70; RESP 20; TEMP 98; O2SAT 99
[2023-09-17] MEDS: LIDOCAINE 5% OINTMENT 35GM TP SCH ×2 (14:52→21:22)
[2023-09-17] MEDS: normal saline 1000ml 1,000 ML IV SCH (15:55)
[2023-09-17 18:00] VITALS: BP 135/59; PULSE 83; RESP 14; TEMP 98.2; O2SAT 96
--- NOTE | 2023-09-17 18:50 | NUR ---
Patient in room ORTHO 4016. I have received report from ISABEL AND TIERRA RN'S and had the opportunity to ask questions and assume patient care.
[2023-09-17 20:00] VITALS: RESP 18; O2SAT 96
[2023-09-17] MEDS: hydrOXYzine 25 MG tablet PO SCH (21:29)
[2023-09-17] MEDS: mag hydrox/Alum hydrox/simeth 30ml oral suspension PO PRN (21:32)
[2023-09-17 22:00] VITALS: BP 175/83; PULSE 90; RESP 15; TEMP 97.8; O2SAT 93
[2023-09-18] MEDS: DICLOFENAC SODIUM 1% gel 1 APPLIC APPLIC TP SCH ×4 (02:07→20:00)
[2023-09-18 06:00] VITALS: BP_SYST 137; BP_DIAS 59; BP_DIAS 77; PULSE 80; PULSE 92; RESP 16; RESP 17; TEMP 97.2; TEMP 97.7; O2SAT 93; O2SAT 95
[2023-09-18 06:30] LABS: BASOPHILS # (AUTO) 0.1 X10'3 (0-0.2); BASOPHILS % (AUTO) 1.2 % (0-1); EOSINOPHILS # (AUTO) 0.4 X10'3 (0-0.9); EOSINOPHILS % (AUTO) 4.1 % (0-6); HEMATOCRIT 31.5 % (42.0-52.0); HEMOGLOBIN 9.8 g/dl (14.0-17.9); LYMPHOCYTES % (AUTO) 19.8 % (21-51); MEAN CORPUSCULAR HGB CONC 31.2 g/dL (33.0-36.5); MONOCYTES # (AUTO) 1.4 X10'3 (0-0.9); MONOCYTES % (AUTO) 13.7 % (2-12); NEUTROPHILS % (AUTO) 61.2 % (42-75); PLATELET COUNT 395 X10'3 (140-440); RED BLOOD COUNT 3.94 X10'6 (4.70-6.10); RED CELL DISTRIBUTION WIDTH 20.2 % (11.5-14.5); WHITE BLOOD COUNT 9.9 X10'3 (4.5-11.0)
--- NOTE | 2023-09-18 06:34 | NUR ---
Problems reprioritized. Patient report given, questions answered & plan of care reviewed with RONNY MENDOZA.
--- NOTE | 2023-09-18 06:34 | NUR ---
Patient in room ORTHO 4016. I have received report from REJI Wang and had the opportunity to ask questions and assume patient care.
[2023-09-18 06:50] LABS: ALANINE AMINOTRANSFERASE 36 U/L (12-78); ALBUMIN 3.1 G/DL (3.4-5.0); ALBUMIN/GLOBULIN RATIO 0.6 (1.1-1.5); ALKALINE PHOSPHATASE 129 IU/L (46-116); ANION GAP 6 (8-16); ASPARTATE AMINO TRANSFERASE 51 U/L (10-37); BILIRUBIN,TOTAL 0.7 MG/DL (0.1-1.0); BLOOD UREA NITROGEN 17 MG/DL (7-18); BUN/CREATININE RATIO 15.5 (10.0-20.0); CHLORIDE 101 MMOL/L (99-107); GLUCOSE 118 MG/DL (70-104); POTASSIUM 4.3 MMOL/L (3.5-5.1); SODIUM 134 MMOL/L (135-145); TOTAL CARBON DIOXIDE 26.8 MMOL/L (24-32); TOTAL PROTEIN 8.5 G/DL (6.4-8.2); eCRCL 78 ML/MIN; eGFR 67 ML/MIN
[2023-09-18] MEDS: HYDROcodone/acetaminophen 5mg/325mg tablet PO PRN ×3 (06:52→16:51)
[2023-09-18] MEDS: LIDOCAINE 5% OINTMENT 35GM TP SCH ×2 (06:53→21:31)
[2023-09-18] MEDS: docusate sod 100mg capsule PO SCH ×2 (06:54→19:24)
[2023-09-18] MEDS: multivitamins, therapeutics tablet PO SCH (06:54)
[2023-09-18] MEDS: thiamine 100mg tablet PO SCH ×2 (06:55→19:23)
[2023-09-18] MEDS: cyanocobalamin 500mcg tablet PO SCH (06:55)
[2023-09-18] MEDS: lisinopril 20mg tablet PO SCH (06:56)
[2023-09-18] MEDS: gabapentin 300mg capsule PO SCH ×3 (06:56→14:32)
[2023-09-18 06:57] LABS: PLATELET ESTIMATE NORMAL
[2023-09-18] MEDS: amLODIPine 5mg tablet PO SCH (06:57)
[2023-09-18] MEDS: furosemide 20MG tablet PO PRN (06:57)
[2023-09-18 07:00] LABS: ANISOCYTOSIS 3+; POLYCHROMASIA 1+; ROULEAUX 1+; TARGET CELLS FEW
[2023-09-18] MEDS: VANCOMYCIN 1,500MG in NS 300ml IVPB IV SCH ×2 (07:06→19:24)
[2023-09-18] MEDS: K and/or MAG REPLACEMENT MC SCH ×2 (08:00→20:00)
[2023-09-18] MEDS: heparin, porcine 5000 units/ml vial SQ SCH ×2 (08:00→19:24)
[2023-09-18 10:00] VITALS: BP 137/77; PULSE 92; RESP 16; TEMP 97.7; O2SAT 95
[2023-09-18 18:00] VITALS: BP 176/85; PULSE 92; RESP 16; TEMP 97.2; O2SAT 96
--- NOTE | 2023-09-18 18:31 | NUR ---
Problems reprioritized. Patient report given, questions answered & plan of care reviewed with REJI Wang.
--- NOTE | 2023-09-18 18:59 | NUR ---
Patient in room ORTHO 4016. I have received report from RONNY MENDOZA and had the opportunity to ask questions and assume patient care.
[2023-09-18 20:00] VITALS: RESP 17; O2SAT 95
[2023-09-18] MEDS: tizanidine 4mg tablet PO SCH (21:30)
[2023-09-18] MEDS: hydrOXYzine 25 MG tablet PO SCH (21:30)
[2023-09-19] MEDS: DICLOFENAC SODIUM 1% gel 1 APPLIC APPLIC TP SCH ×4 (02:00→20:00)
[2023-09-19 06:00] VITALS: BP 137/82; PULSE 72; RESP 20; TEMP 97.8; O2SAT 96
--- NOTE | 2023-09-19 06:35 | NUR ---
Problems reprioritized. Patient report given, questions answered & plan of care reviewed with SHIRA MENDOZA.
[2023-09-19 07:32] LABS: ALANINE AMINOTRANSFERASE 34 U/L (12-78); ALBUMIN/GLOBULIN RATIO 0.6 (1.1-1.5); ALKALINE PHOSPHATASE 123 IU/L (46-116); ANION GAP 6 (8-16); ASPARTATE AMINO TRANSFERASE 46 U/L (10-37); BILIRUBIN,TOTAL 0.6 MG/DL (0.1-1.0); BLOOD UREA NITROGEN 15 MG/DL (7-18); BUN/CREATININE RATIO 12.9 (10.0-20.0); CALCIUM 9.2 MG/DL (8.5-10.1); CHLORIDE 102 MMOL/L (99-107); CREATININE 1.16 MG/DL (0.60-1.10); GLUCOSE 108 MG/DL (70-104); SODIUM 135 MMOL/L (135-145); TOTAL CARBON DIOXIDE 26.9 MMOL/L (24-32); TOTAL PROTEIN 8.3 G/DL (6.4-8.2); eCRCL 74 ML/MIN; eGFR 63 ML/MIN
[2023-09-19 07:39] LABS: HEMATOCRIT 30.6 % (42.0-52.0); HEMOGLOBIN 9.7 g/dl (14.0-17.9); MEAN CORPUSCULAR VOLUME 79.7 FL (78-98)
[2023-09-19 07:41] LABS: MEAN CORPUSCULAR HEMOGLOBIN 25.2 PG (27.0-31.0); MEAN CORPUSCULAR HGB CONC 31.7 g/dL (33.0-36.5); MEAN PLATELET VOLUME 8.6 FL (7.4-10.4); PLATELET COUNT 427 X10'3 (140-440); RED BLOOD COUNT 3.84 X10'6 (4.70-6.10); RED CELL DISTRIBUTION WIDTH 19.6 % (11.5-14.5)
[2023-09-19 08:00] VITALS: RESP 17; O2SAT 95
[2023-09-19] MEDS: K and/or MAG REPLACEMENT MC SCH ×2 (08:00→20:00)
[2023-09-19] MEDS: heparin, porcine 5000 units/ml vial SQ SCH ×2 (08:00→21:35)
[2023-09-19] MEDS: LIDOCAINE 5% OINTMENT 35GM TP SCH ×2 (08:00→21:34)
[2023-09-19 08:21] LABS: ANISOCYTOSIS 2+; MICROCYTOSIS 1+; PLATELET ESTIMATE NORMAL; TOTAL CELLS COUNTED 100
[2023-09-19 08:22] LABS: HYPOCHROMASIA 1+; ROULEAUX 1+; STOMATOCYTES FEW
[2023-09-19] MEDS: VANCOMYCIN 1,500MG in NS 300ml IVPB IV SCH ×2 (08:29→19:00)
--- NOTE | 2023-09-19 09:32 | NUR ---
Pt has 18G extended IV in place on LUE. Spoke with Dr Hector schmidt to leave in for DC and remainder of 9 days of vanco abx course.
[2023-09-19 10:00] VITALS: BP 135/64; PULSE 86; RESP 16; TEMP 97.7; O2SAT 98
[2023-09-19] MEDS: HYDROcodone/acetaminophen 5mg/325mg tablet PO PRN ×3 (10:23→21:36)
[2023-09-19] MEDS: cyanocobalamin 500mcg tablet PO SCH (10:24)
[2023-09-19] MEDS: thiamine 100mg tablet PO SCH ×2 (10:24→21:35)
[2023-09-19] MEDS: multivitamins, therapeutics tablet PO SCH (10:24)
[2023-09-19] MEDS: gabapentin 300mg capsule PO SCH ×3 (10:25→15:58)
[2023-09-19] MEDS: docusate sod 100mg capsule PO SCH ×2 (10:25→20:00)
[2023-09-19] MEDS: lisinopril 20mg tablet PO SCH (10:25)
[2023-09-19] MEDS: amLODIPine 5mg tablet PO SCH (10:27)
[2023-09-19] MEDS ORDERED: HYDR-3965 PO (10:56)
[2023-09-19] MEDS: normal saline 1000ml 1,000 ML IV SCH (11:46)
--- NOTE | 2023-09-19 17:25 | NUR ---
Dr. Sanchez aware pt. will be staying the night.
[2023-09-19 18:00] VITALS: BP 146/72; PULSE 91; RESP 16; TEMP 97.8; O2SAT 97
[2023-09-19] MEDS ORDERED: VANCOMYCIN LEVEL IV ONE (18:30)
--- NOTE | 2023-09-19 18:33 | NUR ---
Report given to Cathy MENDOZA.
--- NOTE | 2023-09-19 20:42 | NUR ---
AGER ID: [id number] MESSAGE: Pt Rm 4016 RUDY BURCIAGA [facility] 28.2 JACQUELY[address] [id number]
[2023-09-19] MEDS: mag hydrox/Alum hydrox/simeth 30ml oral suspension PO PRN (21:34)
[2023-09-19] MEDS: hydrOXYzine 25 MG tablet PO SCH (21:35)
[2023-09-19] MEDS: tizanidine 4mg tablet PO SCH (21:35)
[2023-09-19 22:00] VITALS: BP 160/76; PULSE 86; RESP 16; O2SAT 97
[2023-09-20] MEDS: gabapentin 300mg capsule PO SCH ×2 (00:04→10:03)
[2023-09-20] MEDS: DICLOFENAC SODIUM 1% gel 1 APPLIC APPLIC TP SCH ×2 (00:07→08:00)
[2023-09-20 04:59] LABS: BASOPHILS # (AUTO) 0.1 X10'3 (0-0.2); BASOPHILS % (AUTO) 1.1 % (0-1); EOSINOPHILS # (AUTO) 0.3 X10'3 (0-0.9); EOSINOPHILS % (AUTO) 3.8 % (0-6); HEMATOCRIT 30.8 % (42.0-52.0); HEMOGLOBIN 9.6 g/dl (14.0-17.9); LYMPHOCYTES # (AUTO) 2.3 X10'3 (1.1-4.8); LYMPHOCYTES % (AUTO) 26.6 % (21-51); MEAN CORPUSCULAR HEMOGLOBIN 24.5 PG (27.0-31.0); MEAN CORPUSCULAR VOLUME 78.9 FL (78-98); MEAN PLATELET VOLUME 8.1 FL (7.4-10.4); MONOCYTES # (AUTO) 1.3 X10'3 (0-0.9); MONOCYTES % (AUTO) 14.8 % (2-12); NEUTROPHILS # (AUTO) 4.7 X10'3 (1.8-7.7); NEUTROPHILS % (AUTO) 53.7 % (42-75); PLATELET COUNT 465 X10'3 (140-440); RED CELL DISTRIBUTION WIDTH 19.9 % (11.5-14.5); WHITE BLOOD COUNT 8.7 X10'3 (4.5-11.0)
[2023-09-20 05:12] LABS: ALBUMIN 2.9 G/DL (3.4-5.0); ANION GAP 4 (8-16); BILIRUBIN,TOTAL 0.6 MG/DL (0.1-1.0); BLOOD UREA NITROGEN 15 MG/DL (7-18); BUN/CREATININE RATIO 13.6 (10.0-20.0); CHLORIDE 100 MMOL/L (99-107); GLUCOSE 109 MG/DL (70-104); POTASSIUM 4.1 MMOL/L (3.5-5.1); SODIUM 133 MMOL/L (135-145); TOTAL CARBON DIOXIDE 28.7 MMOL/L (24-32); TOTAL PROTEIN 7.8 G/DL (6.4-8.2); eCRCL 78 ML/MIN; eGFR 67 ML/MIN
[2023-09-20 05:13] LABS: ALANINE AMINOTRANSFERASE 34 U/L (12-78); ALBUMIN/GLOBULIN RATIO 0.6 (1.1-1.5); ALKALINE PHOSPHATASE 116 IU/L (46-116); ASPARTATE AMINO TRANSFERASE 43 U/L (10-37)
[2023-09-20 06:00] VITALS: BP 137/74; PULSE 80; RESP 18; TEMP 98.6; O2SAT 95
--- NOTE | 2023-09-20 06:45 | NUR ---
Patient in room ORTHO 4016. I have received report from Cathy MENDOZA and had the opportunity to ask questions and assume patient care.
--- NOTE | 2023-09-20 06:47 | NUR ---
Problems reprioritized. Patient report given, questions answered & plan of care reviewed with CLINT HOWELL.
--- NOTE | 2023-09-20 07:00 | NUR ---
Patient vanco was placed on hold. I called pharmacy to see why. Per Pharmacy patient vanco lab last night was critical so therefore, vanco was place on hold. Pharmacy is currently working on the dosage and will send up once complete.
[2023-09-20 08:00] VITALS: RESP 18; O2SAT 95
[2023-09-20] MEDS: LIDOCAINE 5% OINTMENT 35GM TP SCH (08:00)
[2023-09-20] MEDS: K and/or MAG REPLACEMENT MC SCH (08:00)
--- NOTE | 2023-09-20 08:50 | NUR ---
Patient insisted on taking a shower, he wrapped his own arm with plastic and tape. Arm looks to be done correct. Patient is currently taking a shower.
[2023-09-20] MEDS ORDERED: vancomycin/NS 1 GM ADD-VANTAGE 250 ML IV SCH (09:00)
[2023-09-20] MEDS: mag hydrox/Alum hydrox/simeth 30ml oral suspension PO PRN (09:10)
[2023-09-20] MEDS: HYDROcodone/acetaminophen 5mg/325mg tablet PO PRN (09:12)
[2023-09-20] MEDS: normal saline 1000ml 1,000 ML IV SCH (09:13)
[2023-09-20 09:25] VITALS: RESP 16
--- NOTE | 2023-09-20 09:32 | NUR ---
Patient assessment complete. All primary care will be completed by Primary CATERING MANAGER Vicki
[2023-09-20 10:00] VITALS: BP 146/80; PULSE 89; RESP 16; TEMP 97.7; O2SAT 97
[2023-09-20] MEDS: thiamine 100mg tablet PO SCH (10:03)
[2023-09-20] MEDS: docusate sod 100mg capsule PO SCH (10:03)
[2023-09-20] MEDS: multivitamins, therapeutics tablet PO SCH (10:03)
[2023-09-20] MEDS: lisinopril 20mg tablet PO SCH (10:04)
[2023-09-20] MEDS: heparin, porcine 5000 units/ml vial SQ SCH (10:05)
[2023-09-20 10:06] VITALS: BP_SYST 137; PULSE 80
[2023-09-20] MEDS: amLODIPine 5mg tablet PO SCH (10:06)
[2023-09-20] MEDS: cyanocobalamin 500mcg tablet PO SCH (10:11)
[2023-09-20 11:45] LABS: PRO BRAIN NATRIURETIC PEPTIDE 139 PG/ML (0-125)
--- NOTE | 2023-09-20 13:24 | NUR ---
Saravanan with [facility] called and was concerned about patients Vanco trough critical from yesterday of 28.2 advised our pharmacist decreased the dose to 1gm from 1500gm. Then Saravanan the pharmacist was concerned of patients creatinine today of 1.10 and yesterday of 1.16. Call out to Dr Young who Sarvaanan requested for her to send him a text wanting to know if patient should stay a little longer to normalize labs
--- NOTE | 2023-09-20 13:32 | NUR ---
verbally spoke with Rebecca TALBOT about patient dc. Per Rebecca patient teaching at [facility] at 4:00pm, they have the rx for the infusion. any other medication will be sent to whatever pharmacy patient requested. The [employer] insurance is paying for everything accept what is due for out of pocket of patient. Okay to dc patient now. Addendum: 09/20/23 at 1350 by Trudy Louis RN Rebecca with case management aware of above and will text Dr Young and see what she wants to do Addendum: 09/20/23 at 1408 by Trudy Louis RN Dr Young here to see patient. Per Dr Young ok to discharge patient he will not received Vancomycin tonight and he will need to show up at [facility] at 9am on 09/21, Vicki JARAMILLO aware ok to discharge and Dr Young was going to go and speak to the patient.
--- NOTE | 2023-09-20 14:30 | NUR ---
Patient dc home today with instructions to go to [facility] tomorrow morning at 9:30 for education. Patient will receive the [facility] tomorrow. All other dc instructions were explained and questions were answered. Patient was taken downstair with hospital staff.
[2023-09-21] MEDS ORDERED: VANCOMYCIN LEVEL IV ONE (20:30)
== END 2023-09-20 14:35 | disposition home health service (06) | DRG 872 ==
LOC: ER 13:59 → ED HOLD 17:55 → EDBEDREQ 09-11 06:09 → ORTHO 4S 09-11 07:45
PROVIDERS: ADMIT Internal Medicine; ATTEND Internal Medicine
PROC: 05HY33Z Insertion of Infusion Device into Upper Vein, Percutaneous Approach (ICD-10-PCS; principal; 2023-09-16)
DX: A41.02 Sepsis due to Methicillin resistant Staphylococcus aureus (principal); L03.113 Cellulitis of right upper limb; E87.1 Hypo-osmolality and hyponatremia; I10 Essential (primary) hypertension; M71.121 Other infective bursitis, right elbow; F10.10 Alcohol abuse, uncomplicated; M19.90 Unspecified osteoarthritis, unspecified site; E87.6 Hypokalemia; Z79.899 Other long term (current) drug therapy
CPT/HCPCS: 36415; 71045; 73200; 80053; 80202; 81003; 82948; 83036; 83605; 83880; 84145; 85007; 85008; 85025; 87040; 87077; 87081; 87186; 90715; 93306; 99285; A4333; G0378; J1644; J2060; J2543; J3370; J3411; J3490; J7030; J7040; Q0177